=== PATIENT | male | born 1995 | race Caucasian/White ===

== ENCOUNTER 2021-07-21 18:37 | Emergency (ER) | payer SELFPAY ==
[2021-07-21] MEDS ORDERED: CEPHALEXIN500 M1 PO (20:07)
[2021-07-21] MEDS ORDERED: BACTROBAN OINT22 GM EXT (20:07)
== END 2021-07-21 20:14 | disposition home or self-care (01) ==
LOC: ER1 18:37
DX: S61.211A Laceration without foreign body of left index finger without damage to nail, initial encounter (principal); W26.0XXA Contact with knife, initial encounter
CPT/HCPCS: 12001; 99282

== ENCOUNTER 2021-07-21 23:26 | Emergency (ER) | payer SELFPAY ==
[~2021-07-21 23:26] MED LIST: BACTROBAN OINT22 GM EXT; CEPHALEXIN500 M1 PO
== END 2021-07-22 00:09 | disposition home or self-care (01) ==
LOC: ER1 23:26
DX: S61.210A Laceration without foreign body of right index finger without damage to nail, initial encounter (principal); W45.8XXA Other foreign body or object entering through skin, initial encounter
CPT/HCPCS: 12001; 99283